=== PATIENT | female | born 1970 | race Caucasian/White ===

== ENCOUNTER → 2018-10-12 08:45 | Outpatient (CLI) | payer MEDICAID, SELFPAY ==
--- NOTE | 2018-10-12 09:00 | RAD_ITS ---
STUDY: AIR-CONTRAST UPPER J SERIES. REASON FOR EXAM: Female, 48 years old. Difficulty swallowing liquids and solids. FLUOROSCOPY TIME (if supplied): (0:36) minutes/seconds. 23 images were obtained. TECHNIQUE: The patient ingested barium. Multiple images of the esophagus, stomach and duodenum were obtained. COMPARISON: None. FINDINGS: The esophagus unremarkable. There is no evidence of obstruction. No mass lesion is seen. There is no evidence of gastroesophageal reflux. The stomach and duodenum are unremarkable. RAD/Upper GI Series Only IMPRESSION: Unremarkable air-contrast upper GI series. Electronically Signed: Karl Dodd MD at 8:30 EST Tel [phone], Service support ,
--- NOTE | 2018-10-12 09:35 | RAD_ITS ---
STUDY: SWALLOWING STUDY REASON FOR EXAM: Female, 48 years old. Dysphagia for liquids and solids. TECHNIQUE: The examination was performed with Speech Pathology in attendance. Under fluoroscopic observation, the patient ingested thin barium, thick barium, barium pudding, and barium coated cracker. FLUOROSCOPY TIME: 1:10 minutes/seconds. 1087 spot images were obtained. RADIOLOGIST INVOLVEMENT: Radiologist was present and providing direct supervision. COMPARISON: None. FINDINGS: The following was observed during swallowing of the various mixtures of barium: Thin Barium: There was no evidence of aspiration or laryngeal penetration. Barium Pudding: There was no evidence of aspiration or laryngeal penetration. Barium Coated Cracker: There was no evidence of aspiration or laryngeal penetration. RAD/Swallowing Function w/Video IMPRESSION: Normal tailored barium swallow study. No evidence of increased risk for aspiration. The swallow study findings were discussed with the patient by the speech pathologist at the conclusion of the examination. Please see speech pathology report for more information and recommendations. Electronically Signed: Karl Dodd MD at 10:44 EST Tel [phone], Service support ,
--- NOTE | 2018-10-12 10:10 | SP.MBSS_ITS ---
PRIMARY / SECONDARY DIAGNOSIS: dysphagia, unspecified REFERRING PHYSICIAN: Naomy Quiroga CNP CURRENT DIET: Regular Textures/Thin Liquids DENTITION: WNL MENTAL STATUS: WNL RESPIRATORY STATUS: O2 via room air PREVIOUS MODIFIED BARIUM SWALLOW STUDY: N/A REASON FOR REFERRAL: The patient c/o coughing/choking on food and liquids that she reports having difficulty with for years with worsening. MEDICAL HISTORY: Patient has had hysterectomy and three deliveries. The patient reports no diagnosis or recent medical changes. STUDY FINDINGS: Patient participated in a Modified Barium Swallow (MBS) study on 10/12/2018. Dr. Dodd was the radiologist present for this evaluation. This study was recorded in the lateral view and images were sent to PACs for storage. The following consistencies were presented to this patient for analysis of oropharyngeal swallow function: thin liquid, pudding, and a regular textured, Lea Doone cookie. Results of the MBS are as follows: PENETRATION / ASPIRATION SCALE (RUVALCABA): 1 = does not enter airway 2 = enters airway/above vocal folds/ejected 3 = enters airway/above vocal folds/not ejected 4 = enters airway/contacts vocal folds/ejected 5 = enters airway/contacts vocal folds/not ejected 6 = enters airway/below vocal folds/ejected 7 = enters airway/below vocal folds/not ejected despite effort 8 = enters airway/below vocal folds/no effort PENETRATION / ASPIRATION SCALE (SCORE): 1) thin liquid via tsp = 1 2) thin liquid via tsp = 1 3) thin liquid via small single sip from cup = 1 4) thin liquid via large single single from cup = 1 5) pudding = 1 6) cookie = 1 IMPRESSION: ORAL PHASE CHARACTERIZED BY: LABIAL SEAL: no labial escape TONGUE CONTROL DURING BOLUS MANIPULATION: cohesive bolus between tongue to palatal seal BOLUS PREPARATION / MASTICATION: timely and efficient chewing and mashing BOLUS TRANSPORT / LINGUAL MOTION: brisk tongue motion ORAL RESIDUE: complete oral clearance PHARYNGEAL PHASE CHARACTERIZED BY: INITIATION OF PHARYNGEAL SWALLOW: bolus head at posterior angle of ramus at first hyoid excursion SOFT PALATE ELEVATION: no bolus between soft palate and pharyngeal wall LARYNGEAL ELEVATION: complete superior movement of thyroid cartilage with complete approximation of arytenoids cartilage to epiglottic petiole ANTERIOR HYOID EXCURSION: complete anterior movement EPIGLOTTIC MOVEMENT: complete epiglottic inversion LARYNGEAL VESTIBULE CLOSURE AT HEIGHT OF SWALLOW: complete laryngeal vestibule closure with no air/contrast in laryngeal vestibule PHARYNGEAL STRIPPING WAVE: pharyngeal stripping wave present / complete PHARYNGOESOPHAGEAL SEGMENT OPENING: complete distension and complete duration with no obstruction of flow TONGUE BASE RETRACTION: no contrast between tongue base and posterior pharyngeal wall PHARYNGEAL RESIDUE: complete pharyngeal clearance ESOPHAGEAL PHASE CHARACTERIZED BY: ESOPHAGEAL BOLUS CLEARANCE IN THE UPRIGHT POSITION: could not view DIET TEXTURE RECOMMENDATIONS: Will recommend a regular textured, thin liquid diet. COMPENSATORY STRATEGIES RECOMMENDED: reduced bolus volume, reduced rate of intake, and sitting upright close to 90 degrees during PO intake. INTERPRETATION OF RESULTS: Oral phase primarily marked by timely mastication with brisk tongue movements and lingual control. Complete oral clearance observed. Pharyngeal phase primarily marked by timely swallow onset with adequate closure of the airway during deglutition. Adequate laryngeal elevation and hyoid excursion noted all resulting in patient's swallow function that is WNL at this time. No aspiration appreciated throughout consistencies trialed. Reported coughing/choking during PO intake likely attributed to suboptimal tolerance of larger bolus volumes, with anticipated improved tolerance with upright positioning and reduced bolus volume. RECOMMENDATIONS: No further skilled speech therapy intervention warranted at this time. Would further consider additional assessment of the patients esophageal functioning (pending esophagram 10/12/2018), as it is outside the scope of the modified barium swallow study to objectively assess esophageal functioning, may additionally consider further workup via speech writer. ADDITIONAL COMMENTS/RECOMMENDATIONS: Results and recommendations were discussed with the Patient immediately following MBS completion, with the Patient verbalizing understanding and agreement with all recommendations and education provided. IMAGE COUNT: [id number] Amber Elam M.A., CCC-PERMIT TECHNICIAN Speech Language Pathologist [id number] [place] [address] [email or web address] [phone]
== END ==
PROVIDERS: Family Provider Student in an Organized Health Care Education/Training Program; PCP Student in an Organized Health Care Education/Training Program; Referring Provider Nurse Practitioner Adult Health; Visit Provider Nurse Practitioner Adult Health
DX: R13.10 Dysphagia, unspecified (principal)
CPT/HCPCS: 74230; 74246

== ENCOUNTER → 2022-01-23 | Outpatient (CLI) | payer MEDICAID, SELFPAY ==
[2022-01-23] MEDS: Methacholine Chloride 18 ml neb kit INHALATION (12:57)
--- NOTE | 2022-01-24 08:39 | BRONCHALL ---
Bronchoprovocation Challenge Bronchoprovocation Challenge Bronchoprovocation Challenge: INTRODUCTION: The patient is a 51-year-old female who presents for a methacholine challenge secondary to a diagnosis of cough. Respiratory therapy reported good patient effort and reproducible results. INTERPRETATION: Initial spirometry did not show any large airways obstructive ventilatory defect and preserved airflows throughout. The patient was then given progressively increasing doses of methacholine in a standardized fashion. At no point during testing did the patient's FEV1 drop to the threshold criteria to be considered a positive test. IMPRESSION: Negative methacholine challenge.
== END | disposition home or self-care (01) ==
LOC: PSN 12:46
PROVIDERS: PCP Student in an Organized Health Care Education/Training Program
DX: R05.9 Cough, unspecified (principal)
CPT/HCPCS: 94070; 95070

== ENCOUNTER 2024-12-20 15:17 | Emergency (ER) | payer MEDICAID, SELFPAY ==
[2024-12-20 15:18] VITALS: BP 166/74; PULSE 74; RESP 18; TEMP 37.2; O2SAT 99; BMI 39.0
--- NOTE | 2024-12-20 15:44 | VDUE_ITS ---
Reason For Study Reason For Study: RUE Pain Right Proximal Right jugular vein is spontaneous, widely patent, phasic, with no intraluminal echogenicity noted. Right subclavian vein is spontaneous, widely patent, phasic, with no intraluminal echogenicity noted. Right Lower Arm Right radial vein is compressible. Right ulnar vein is compressible. Right Arm Right axillary vein is spontaneous, patent, phasic, competent, compressible and demonstrates augmentation. Right brachial vein is compressible. Right cephalic vein is compressible. Right basilic vein is compressible. Procedure This was a unilateral right upper extremity venous doppler examination. Preliminary results given to Dr. Dodge. VL/Venous Duplex US, Unilateral Interpretation Summary Deep veins of the right upper extremity are patent and compressible segmentally . There is no evidence of deep vein thrombosis. The superficial veins of the right upper extremity, the basilic and cephalic veins, are patent and compressible. There is no evidence of right upper extremity superficial thrombo phlebitis involving the veins imaged. Ordering Physician: Kev Leal Referring Physician: Carlitos Miller Performed By: Eugenio Cortes RVT ???
--- NOTE | 2024-12-20 16:27 | EDS_ITS ---
HPI <NIRAV Jiménez - Last Filed: 12/20/24 17:13> History of Present Illness Chief Complaint: Upper Extremity Injury Narrative Narrative: Patient presenting today with pain to her right biceps that she has had over the past 3 weeks. She reports that the pain was improving and then she was lifting heavy loads of laundry a few days ago which seemed to exacerbate her pain. Her pain is improved with rest and worsened with movement/use of her arm. She went to urgent care today, they recommended she come in to have a venous duplex ultrasound to rule out DVT. She denies any history of blood clots or recent surgery/travel/immobilization. She has no chest pain or shortness of breath. She denies any injury to her right arm. She has been taking Tylenol and ibuprofen with minimal improvement. PFS <NIRAV Jiménez - Last Filed: 12/20/24 17:13> [facility] Medical History Upper extremity injury Home Medications ?Medication ?Instructions ?Recorded ?Last Taken ?Type No Known/Unobtainable [No Known 6 Unknown History Home Medications] Allergy/AdvReac Type Severity Reaction Status Date / Time azithromycin (From Zithromax) Allergy Rash Verified 11/30/15 09:19 Social History Smoking Status: Never smoker ROS <NIRAV Jiménez - Last Filed: 12/20/24 17:13> ROS ED Constitutional Constitutional ED: Denies chills or fever(s) Cardiovascular Cardiovascular: Denies chest pain Respiratory/Chest Respiratory/Chest: Denies dyspnea Musculoskeletal Musculoskeletal: Reports myalgias Integumentary Denies rash Neurologic Neurologic: Denies paresthesias or weakness EXAM <NIRAV Jiémnez - Last Filed: 12/20/24 17:13> Physical Exam Const Vital Signs: 12/20/24 15:18 Temperature 98.9 F Temperature Source Oral Pulse Rate 74 Respiratory Rate 18 Blood Pressure 166/74 H Blood Pressure Mean 104 Pulse Ox 99 Oxygen Delivery Method Room Air Positive well nourished, well developed and no apparent distress General Appearance ED: well developed HEENT Reports normocephalic and head/scalp atraumatic Mouth ED: Yes moist mucous membranes normal Eyes PERRL and EOMs intact bilaterally Neck full ROM and supple Chest Wall inspection of chest normal Resp normal respiratory effort and clear to auscultation bilaterally Cardio regular rate and regular rhythm Back/Spine normal ROM and normal to inspection Extremity normal to inspection and full ROM Extremity Narrative: Tenderness to palpation along the right biceps muscle, no deformity or signs of bicep tendon rupture. Full range of motion of the right elbow, shoulder, wrist, and hand. Right radial pulse 2+, good cap refill, sensation intact. No overlying rash, swelling, or bruising. Neuro oriented x3, CN's II-XII intact bilaterally, moves all extremities, no focal motor deficits and no sensory deficits noted Sensorium / Orientation: awake and alert Psych mental status grossly normal and thought process normal Skin no rashes or lesions noted and no wounds MDM <NIRAV Jiménez - Last Filed: 12/20/24 17:13> [facility] Narrative Medical decision making narrative: Patient presenting today due to pain in her right biceps she has had for a few weeks that seemed to be getting better but then got worse after she was carrying heavy loads of laundry. No direct injury to her arm occurred. She does not have any evidence of a bicep tendon rupture on exam, she has full range of motion to right upper extremity, she is neurovascularly intact, no signs of ischemic limb. Venous duplex ultrasound was obtained and is negative for DVT. X-ray of the right humerus obtained and is negative for fracture or other abnormality. Examination is consistent with a right bicep strain as her pain is limited to the biceps. RICE instructions discussed, she can alternate Tylenol and ibuprofen as needed for her pain. I did offer her analgesia here and she declined. Patient discharged home in stable condition. Recommended following up with PCP. <Dr. David Dodge DO - Last Filed: 12/20/24 16:48> [facility] Treatment and Re-Evaluation Narrative: I have personally performed a face to face assessment of the patient and have reviewed the MARCIE Note. I performed a substantive portion of the visit including all aspects of the following. My stark findings include: History is 54-year-old female presenting with right biceps pain. Patient denies any injury or strenuous activity. She notes no swelling distally. She was seen in urgent care was sent to the emergency room to rule out a DVT. She had a duplex ultrasound ordered through nursing triage. Exam is focal tenderness in the mid biceps belly. There is no tenderness along the biceps tendon. There is no ecchymosis or swelling. Neurovascular intact distally. Medical Decison Making duplex ultrasound is negative. My independent interpretation of the plain films of the humerus is no acute fracture no obvious cause for the patient's pain. This does seem to be isolated in the biceps muscle. Would recommend conservative care but if continued symptoms to follow- up with PCP Discharge Plan Triage Chief Complaint: Upper Extremity Injury ED Midlevel Provider: Arely Greer ED Provider: David Dodge Dx/Rx/DC Orders Clinical Impression: Strain of right biceps Instructions: Self-Care for Strains and Sprains Prescriptions: No Action No Known Home Medications Primary Care Provider: Carlitos Miller Referrals: Carlitos Miller DO [Primary Care Provider] - 5-7 Days Activity Restrictions/Additional Instructions: Follow-up with your PCP, alternate Tylenol and ibuprofen as needed for your pain. Return for any worsening symptoms. Print Language: Hungarian Disposition Disposition: Home, Self Care Discharge Date/Time: 12/20/24 16:52
--- NOTE | 2024-12-20 16:30 | RAD_ITS ---
PROCEDURE: HUMERUS MIN 2 VIEWS 12/20/2024 REASON FOR EXAM: ARM PAIN TECHNIQUE: Right humerus two views COMPARISON: None. FINDINGS: Mild soft tissue swelling. No acute fracture. No bone destruction. RAD/Humerus min 2 Views IMPRESSION: No acute osseous abnormality seen in the right humerus. Reading Location: [id number]
== END 2024-12-20 16:52 | disposition home or self-care (01) ==
PROVIDERS: Emergency Provider Emergency Medicine; PCP Student in an Organized Health Care Education/Training Program; Visit Provider Emergency Medicine
DX: S46.211A Strain of muscle, fascia and tendon of other parts of biceps, right arm, initial encounter (principal); X50.0XXA Overexertion from strenuous movement or load, initial encounter; M79.10 Myalgia, unspecified site
CPT/HCPCS: 73060; 93971; 99282